=== PATIENT | female | born 1960 | race Caucasian/White ===

== ENCOUNTER → 2018-03-11 13:54 | Outpatient (CLI) | payer OTHER, SELFPAY ==
--- NOTE | 2018-03-11 14:01 | NVE_ITS ---
Venous Exam Indications: 729.5 Pain in limb. 729.81 Swelling of limb. IMPRESSIONS 1. There is no evidence of significant Reflux. 2. No evidence of deep or superficial vein thrombosis involving the right lower extremity Right lower extremity venous duplex evaluation. Doppler flow study including spectral analysis, color and pereyra scale imaging. Location: Vascular laboratory. Patient status: Outpatient. Tables: Venous flow and imaging: + +-------+ + Location Overall Flow properties + +-------+ + Right common femoral Patent Normal phasicity; spontaneous; normal augmentation; compressible + +-------+ + Right saphenofemoral junction Patent Compressible + +-------+ + Right profunda femoral Patent Compressible + +-------+ + Right femoral Patent Normal phasicity; spontaneous; normal augmentation; compressible + +-------+ + Right greater saphenous Patent Normal phasicity; spontaneous; normal augmentation; compressible + +-------+ + Right popliteal Patent Normal phasicity; spontaneous; normal augmentation; compressible + +-------+ + Right posterior tibial Patent Compressible + +-------+ + Right peroneal Patent Compressible + +-------+ + Right gastrocnemius Patent Compressible + +-------+ + Right soleal Patent Compressible + +-------+ + (Report amended ) Electronically signed by: Jigar Scott [id number]
== END ==
PROVIDERS: PCP Family Medicine; Visit Provider Family Medicine
DX: M79.604 Pain in right leg (principal)
CPT/HCPCS: 93971

== ENCOUNTER 2020-08-17 14:55 | Emergency (ER) | payer OTHER, SELFPAY ==
[2020-08-17 14:56] VITALS: BP 138/82; PULSE 81; PULSE 82; RESP 17; RESP 19; TEMP 36.7; O2SAT 98; O2SAT 99; BMI 28.8
--- NOTE | 2020-08-17 15:04 | ECG_ITS ---
APPROVED REPORT Exam: Resting ECG HR:68 bpm ECG Measurements Heart Rate 68 AXES OR 176 P 50 QRSd 68 QRS 28 QT 390 T 36 QTc 414 Conclusion Normal sinus rhythm Possible Left atrial enlargement Borderline ECG Electronically signed by : Jayy Miller, 08/18/2020 08:52:57
--- NOTE | 2020-08-17 15:06 | HMH.EDGENADL ---
ED Disposition Clinical Impression: Epigastric pain Disposition: Home, Self-Care Condition on Discharge: Good Referrals: Wei Guerrero MD [Primary Care Provider] - 3 days Time of Disposition: 16:02 - Critical Care Critical Care Time: No Attestation: On , the high probability of a clinically significant, sudden or life threatening deterioration of the following system(s) required my full and direct attention, intervention and personal management. The time I documented below is in addition to time spent performing reported procedures but includes the following listed in this critical care notation. Medical Decision Making - Medical Records Medical records reviewed: Yes: I reviewed the patient's medical records. - Andrew Inquiry Pt receiving controlled substance: No Vital Signs: 08/17/20 14:56 Temperature 98.1 F Temperature Source Oral Pulse Rate [Left Radial] 81 Respiratory Rate 19 Blood Pressure [Right Arm] 138/82 Blood Pressure Mean [Right Arm] 100 Blood Pressure Source [Right Arm] Automatic Cuff Blood Pressure Position [Right Arm] Sitting 02 Sat by Pulse Oximetry 99 Oxygen Delivery Method Room Air - Lab Data Lab Results 08/17/20 15:10: WBC 6.2, RBC 4.22, Hgb 12.4, Hct 39.4, MCV 93.4, MCH 29.4, MCHC 31.5 L, RDW 12.9, Plt Count 297, MPV 7.3 L, Neut % (Auto) 68.2, Lymph % (Auto) 19.5, Elliott % (Auto) 9.9 H, Eos % (Auto) 1.9, Baso % (Auto) 0.5, Neut # (Auto) 4.2, Lymph # (Auto) 1.2, Elliott # (Auto) 0.6, Eos # (Auto) 0.1, Baso # (Auto) 0.0 08/17/20 15:10: Sodium 141, Potassium 4.1, Chloride 105, Carbon Dioxide 31 H, Anion Gap 9.1, BUN 20 H, Creatinine 1.10 H, Estimated Creat Clear 68, Estimated GFR 51 L, Est GFR ( Amer) 62, Glucose 108 H, Calcium 9.4, Total Bilirubin 0.3, AST 39 H, ALT 26, Alkaline Phosphatase 63, Troponin I < 0.01, Total Protein 7.3, Albumin 4.0, Globulin 3.3 H, Albumin/Globulin Ratio 1.2, Lipase 94 Result diagrams: 08/17/20 15:10 08/17/20 15:10 Orders (Tests/Meds): ORDERS Category Date Time Status Troponin I Q3H Lab 08/17/20 18:15 Ordered Troponin I Q3H Lab 08/17/20 21:15 Ordered - ECG Data Tracing #1 Normal sinus rhythm, 60 bpm, no ST elevation or depression, normal intervals, no ectopy. ECG initial impression date: 08/17/20 ECG initial impression time: 15:08 - JUANITO Score for Non-Stemi Age of Patient: 50-59 years old Heart Rate: 70-89 bpm Systolic Blood Pressure: 120-139 mmhg Serum Creatinine: 0.80-1.19 mg/dl CHF Killip Class: I-No CHF Other Risk Factors: None Non-Stemi Risk Score: 91 Medical Decision Narrative: 59yo F evaluated for epigastric pain. Differential diagnosis includes but is not limited to: Peptic ulcer disease, GERD, ACS/MD, pneumonia, PE, irritable bowel disease, constipation, referred pain from chronic back injury. Patient is in no acute distress on initial evaluation. EKG is unremarkable as above. Chest x-ray, labs are pending at this time. Patient labs are unremarkable. EKG is unremarkable. Chest x-ray unremarkable. Patient remains in no acute distress at this time. Believe her symptoms are more likely related to her chronic back pain/injury as her epigastric/chest pain is positional per HPI. Encourage patient to follow-up PCP for further evaluation and management as an outpatient. General Adult HPI - General Stated complaint: upper epigastric pain Time Seen by Provider: 08/17/20 15:06 Mode of Arrival: Family Vehicle Source of Information: Patient Limitations: No Limitations Description of Symptoms (Recalled from ER Triage Doc. by RN): c/o epigastric pain that radiates into back since Saturday. - History of Present Illness HPI narrative: 59yo F without significant past medical history presents the emergency department secondary to epigastric pain ongoing since Saturday. 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 She reports symptoms are relieved by lying back or reclining.
--- NOTE | 2020-08-17 15:07 | XR_ITS ---
PROCEDURE: XR CHEST PORTABLE CLINICAL HISTORY: epigastric pain Chest pain COMPARISON: CR CXR1 CHEST-PORTABLE from 10/13/2015 FINDINGS: Borderline cardiomegaly without failure. Old granulomatous disease. No lobar consolidation or collapse. No acute bony abnormalities. IMPRESSION: No acute findings. Dictated by: Jigar Scott MD 08/17/2020 15:45 Jigar Scott MD in [place] 08/17/2020 15:45
[2020-08-17 15:24] LABS: Basophils % 0.5 % (0.1-2.0); Eosinophils # 0.1 K/mm3 (0.0-0.4); Eosinophils % 1.9 % (0.1-12.0); Hematocrit 39.4 % (37.0-47.0); Hemoglobin 12.4 g/dL (12.2-16.2); Lymphocytes # 1.2 K/mm3 (0.7-4.5); Lymphocytes % 19.5 % (10-50); Mean Corpuscular HGB Conc 31.5 g/dL (31.8-35.4); Mean Corpuscular Hemoglobin 29.4 pg (27.0-31.2); Mean Corpuscular Volume 93.4 fl (81-99); Mean Platelet Volume 7.3 fl (7.4-10.4); Monocytes # 0.6 K/mm3 (0.1-1.0); Monocytes % 9.9 % (1.7-9.3); Neutrophils # 4.2 K/mm3 (1.8-7.8); Neutrophils % 68.2 % (37.0-80.0); Platelet Count 297 K/mm3 (142-424); Red Blood Count 4.22 M/mm3 (4.20-5.40); Red Cell Distribution Width 12.9 % (11.5-17.5); White Blood Count 6.2 K/mm3 (4.8-10.8)
[2020-08-17 15:26] VITALS: BP 116/76; PULSE 76; RESP 16; O2SAT 98
[2020-08-17 15:30] VITALS: PULSE 82; RESP 18; O2SAT 100
[2020-08-17 15:30] LABS: Chloride 105 mmol/L (98-107); Sodium 141 mmol/L (136-145)
[2020-08-17 15:31] LABS: Potassium 4.1 mmoL/L (3.5-5.1)
[2020-08-17 15:33] LABS: Alanine Aminotransferase 26 U/L (12-78); Alkaline Phosphatase 63 U/L (38-126); Anion Gap 9.1 mEq/L (5-15); Aspartate Amino Transferase 39 U/L (14-36); Bilirubin,Total 0.3 mg/dl (0.2-1.3); Blood Urea Nitrogen 20 mg/dl (7-17); Carbon Dioxide 31 mmol/L (22.0-30.0); Creatinine Clearance Estimated 68 mL/min (50-200); Estimated Glomerular Filt Rate 51 ml/min (>60); GFR (African American) 62 ML/MIN (>60); Lipase 94 U/L (23-300)
[2020-08-17 15:34] LABS: Albumin/Globulin Ratio 1.2 (1.1-1.8); Calcium 9.4 mg/dl (8.4-10.2); Globulin 3.3 g/dL (1.3-3.2); Glucose 108 mg/dl (74-100); Total Protein,Serum 7.3 g/dl (6.3-8.2)
[2020-08-17 15:50] LABS: Troponin I < 0.01 ng/ml (0.00-0.034)
[2020-08-17 16:00] VITALS: PULSE 77; RESP 17; O2SAT 99
[2020-08-17 16:12] VITALS: BP 114/79; PULSE 81; RESP 16; TEMP 36.6; O2SAT 99
== END 2020-08-17 16:13 | disposition home or self-care (01) ==
PROVIDERS: Emergency Provider Family Medicine; PCP Family Medicine
DX: R10.13 Epigastric pain (principal); I10 Essential (primary) hypertension; Z88.0 Allergy status to penicillin; Z79.899 Other long term (current) drug therapy
CPT/HCPCS: 71045; 80053; 83690; 84484; 85025; 93005; 99283

== ENCOUNTER → 2020-10-13 08:55 | Outpatient (CLI) | payer OTHER, SELFPAY ==
--- NOTE | 2020-10-13 09:06 | CT_ITS ---
PROCEDURE: CT ABDOMEN PELVIS WO/W CON CLINICAL INDICATION: HYDRONEPHROSIS Midepigastric pain Patient states hydronephrosis seen on EGD COMPARISON: US KID US [id number] from 09/06/2015 TECHNIQUE: IV Contrast: 75ML Isovue 370 Oral Contrast None Axial images obtained with sagittal and coronal reformats. All CT scans at the facility use one or more dose reduction, viz: automated exposure control, ma/kV adjustment per patient size (including targeted exams where dose is matched to indication, i.e. head), or iterative reconstruction technique. FINDINGS: LOWER THORAX: There are multiple calcified granulomas in the lung bases as well as a few noncalcified nodules measuring 4 mm in the right lower lobe. There is a small pericardial effusion measuring up to 7 mm in thickness. ABDOMEN & PELVIS: There are few calcified granulomas in the liver and spleen. No focal liver lesion is apparent. The spleen, pancreas, and adrenal glands have an unremarkable appearance. No radiopaque gallstones apparent. There is a mildly prominent right extrarenal pelvis. There are multiple pelvic phleboliths some of which are adjacent to the distal ureter. No definite ureteral calculus however is felt to be present. No urinary bladder calculi evident. There is a mild amount of retained colonic feces. No evidence of appendicitis. No intestinal obstruction or free air. There are scattered colonic diverticula but no evidence of diverticulitis. There may be a small right ovarian cyst at 1.8 cm. This could also be due to an unopacified bowel loop. IMPRESSION: 1. Mildly prominent extrarenal pelvis on the right. No renal or ureteral calculi. 2. Small pericardial effusion. 3. Other nonacute findings as described above. Dictated by: Jigar Scott MD 10/14/2020 12:02 Jigar Scott MD in [place] 10/14/2020 12:02
[2020-10-13 09:24] LABS: Blood Urea Nitrogen 18 mg/dl (7-17); Estimated Glomerular Filt Rate 57 ml/min (>60); GFR (African American) 69 ML/MIN (>60)
== END ==
PROVIDERS: PCP Family Medicine; Visit Provider Urology
DX: N13.30 Unspecified hydronephrosis (principal)
CPT/HCPCS: 36415; 74178; 82565; 84520; Q9967

== ENCOUNTER → 2020-12-09 10:59 | Outpatient (CLI) | payer OTHER, SELFPAY ==
[2020-12-09 12:08] LABS: Chloride 109 mmol/L (98-107); Sodium 141 mmol/L (136-145)
[2020-12-09 12:09] LABS: Potassium 4.7 mmoL/L (3.5-5.1)
[2020-12-09 12:11] LABS: Alanine Aminotransferase 16 U/L (12-78); Albumin Level 4.1 g/dl (3.5-5.0); Alkaline Phosphatase 56 U/L (38-126); Anion Gap 13.7 mEq/L (5-15); Aspartate Amino Transferase 32 U/L (14-36); Bilirubin,Direct 0.2 mg/dl (0.0-0.4); Bilirubin,Indirect 0.2 mg/dL (0.0-0.9); Bilirubin,Total 0.4 mg/dl (0.2-1.3); Bilirubin,Unconjugated 0.2 mg/dL (0.0-1.1); Blood Urea Nitrogen 18 mg/dl (7-17); Carbon Dioxide 23 mmol/L (22.0-30.0); Estimated Glomerular Filt Rate 64 ml/min (>60); GFR (African American) 78 ML/MIN (>60); Glucose 86 mg/dl (74-100); Total Protein,Serum 6.8 g/dl (6.3-8.2); Triglycerides 156 mg/dl (30-150); VLDL Cholesterol 31 mg/dL (0-40)
[2020-12-09 14:35] LABS: Chol/HDL Ratio 3.6 (1-3.5); Cholesterol 214 mg/dl (140-200); HDL Cholesterol 60 mg/dl (40-60)
== END ==
PROVIDERS: Visit Provider Internal Medicine Interventional Cardiology
DX: I10 Essential (primary) hypertension (principal); E78.00 Pure hypercholesterolemia, unspecified
CPT/HCPCS: 36415; 80048; 80061; 80076

== ENCOUNTER 2021-01-11 16:00 | Outpatient (RCR) | payer OTHER, SELFPAY | END 2021-01-11 16:05 | disposition home or self-care (01) | LOC: PT 16:00 | PROVIDERS: PCP Family Medicine; Visit Provider Orthopaedic Surgery Adult Reconstructive Orthopaedic Surgery | DX: M25.571 Pain in right ankle and joints of right foot (principal) | CPT/HCPCS: 97033; 97035; 97110; 97163 ==

== ENCOUNTER → 2021-03-02 11:15 | Outpatient (CLI) | payer OTHER, SELFPAY | PROVIDERS: Visit Provider Nurse Practitioner Family | DX: Z20.822 Contact with and (suspected) exposure to COVID-19 (principal); U07.1 COVID-19 | CPT/HCPCS: U0003 ==

== ENCOUNTER → 2021-07-21 10:44 | Outpatient (CLI) | payer OTHER, SELFPAY ==
[2021-07-21 11:48] LABS: Alanine Aminotransferase 20 U/L (12-78); Albumin Level 4.1 g/dl (3.5-5.0); Albumin/Globulin Ratio 1.6 (1.1-1.8); Alkaline Phosphatase 60 U/L (38-126); Anion Gap 11.2 mEq/L (5-15); Aspartate Amino Transferase 45 U/L (14-36); Bilirubin,Total 0.4 mg/dl (0.2-1.3); Blood Urea Nitrogen 17 mg/dl (7-17); Calcium 9.3 mg/dl (8.4-10.2); Carbon Dioxide 29 mmol/L (22.0-30.0); Chloride 105 mmol/L (98-107); Chol/HDL Ratio 3.5 (1-3.5); Cholesterol 217 mg/dl (140-200); Estimated Glomerular Filt Rate 64 ml/min (>60); GFR (African American) 78 ML/MIN (>60); Globulin 2.6 g/dL (1.3-3.2); Glucose 92 mg/dl (74-100); HDL Cholesterol 62 mg/dl (40-60); Potassium 4.2 mmoL/L (3.5-5.1); Sodium 141 mmol/L (136-145); Total Protein,Serum 6.7 g/dl (6.3-8.2); Triglycerides 155 mg/dl (30-150); VLDL Cholesterol 31 mg/dL (0-40)
[2021-07-21 11:59] LABS: Direct LDL Cholesterol 118.95 mg/dL (100-129)
[2021-07-21 12:20] LABS: Thyroid Stimulating Hormone 1.14 uIU/mL (0.465-4.68)
== END ==
PROVIDERS: Visit Provider Physician Assistant
DX: I10 Essential (primary) hypertension (principal); E78.5 Hyperlipidemia, unspecified
CPT/HCPCS: 36415; 80053; 80061; 84443

== ENCOUNTER 2022-01-08 15:58 | Emergency (ER) | payer OTHER, SELFPAY ==
[2022-01-08 16:45] VITALS: BP 146/78; PULSE 67; RESP 17; TEMP 36.7; O2SAT 99; BMI 27.8
[2022-01-08 16:53] LABS: Apearance,Urine Clear (Clear); Bilirubin,Urine Negative (Negative); Blood, Urine 1+ (Negative); Color,Urine Yellow (Yellow); Glucose,Urine (UA) Negative (Negative); Ketones,Urine Negative (Negative); PH,Urine 5.5 (5.0-8.5); Protein,Urine Negative (Negative); UTC Leukocyte Esterase,Urine 1+ (Negative); UTC Nitrate,Urine Negative (Negative); Urobilinogen,Urine 0.2 EU/dl (0.2)
[2022-01-08 17:05] VITALS: BP 146/78; PULSE 67; RESP 17; TEMP 36.7; O2SAT 99
--- NOTE | 2022-01-08 17:16 | HMH.EDUTC ---
[facility] Disposition Clinical Impression: UTI (urinary tract infection) Qualifiers: Urinary tract infection type: site unspecified Hematuria presence: with hematuria Qualified Code(s): N39.0 - Urinary tract infection, site not specified Disposition: Home, Self-Care Condition on Discharge: Good Instructions: Urinary Tract Infection, DI for Urinary Tract Infection (UTI), Cephalexin Additional Instructions: *Increase fluids. Water not Soda or Tea *Start antibiotic immediately and be sure to take as ordered for the FULL length of time although you should start to see improvement over the next 48 hours *Pyridium as needed Remember this medication will turn your urine [place]. This is normal but it will stain what ever it gets on *You should not use Pyridium for more than 48 hours. If so , follow up with your primary physician to review urine culture and ensure that antibiotic is adequate for infection *Be SURE to follow up anytime for new or worsening symptoms with your family doctor. AND in 48 hours for urine culture results with your family doctor, if you do not have a doctor then you may call back to the [facility] for urine culture results and further treatment. We do recommend that you choose and establish care with a Primary Care Physician. AND follow up with them in 10-14 days to repeat UA to ensure infection is resolved and blood no longer present *Be sure to let your PCP know that we sent urine cultures from the [facility] so they can follow up to ensure that you area the on the correct antibiotic Call your doctor office and make appointment for 48 hours (2 days from today) to follow up and get the results of your urine culture and further treatment Prescriptions: cephALEXin [cephALEXin 500mg capsule*] 500 mg PO BID 7 Days #14 cap Transmission Status: Pending to [id number] Phenazopyridine HCl [Pyridium 200mg Tablet] 200 pow PO TID #6 tab Transmission Status: Pending to [id number] Referrals: Wei Guerrero MD [Primary Care Provider] - As needed Time of Disposition: 17:26 Medical Decision Making - Andrew Inquiry Pt receiving controlled substance: No Andrew was queried for this patient: No Vital Signs: 01/08/22 16:45 01/08/22 17:05 Temperature 98.0 F 98.0 F Temperature Source Oral Pulse Rate 67 Pulse Rate [Right Brachial] 67 Respiratory Rate 17 17 Blood Pressure 146/78 H Blood Pressure [Right Arm] 146/78 H Blood Pressure Mean [Right Arm] 100 Blood Pressure Source [Right Arm] Automatic Cuff Blood Pressure Position [Right Arm] Sitting 02 Sat by Pulse Oximetry 99 Oxygen Delivery Method Room Air - Lab Data Lab results reviewed: Yes: I reviewed the patient's lab results. Lab Results 01/08/22 16:45: Urine Color Yellow, Urine Appearance Clear, Urine pH 5.5, Ur Specific [place] 1.010, Urine Protein Negative, Urine Glucose (UA) Negative, Urine Ketones Negative, Urine Blood 1+, Urine Nitrate Negative, Urine Bilirubin Negative, Urine Urobilinogen 0.2, Ur Leukocyte Esterase 1+ A Orders (Tests/Meds): ORDERS Category Date Time Status Urine Culture Stat Micro 01/08/22 16:40 Received Medical Decision Narrative: Patient states that she has taken cephalexin in the past without complications or reactions [facility] HPI - General Stated complaint: possible UTI Time Seen by Provider: 01/08/22 17:16 Mode of Arrival: Ambulatory Source of Information: Patient Limitations: No Limitations Description of Symptoms (Recalled from Triage Doc. by RN): PATIENT C/O PRESSURE TO BLADDER AND URINARY FREQUENCY X 1 WEEK HEENT Symptoms (Recalled from RN notes): No Resp Symptoms (Recalled from RN notes): No Skin Symptoms (Recalled from RN notes): No MS Symptoms (Recalled from RN notes): No Functional Status (Recalled from RN notes): WNL - History of Present Illness Provider Complaint: Patient states that she feels like she may have a UTI States that she has been having pressure and burning with urination for abou
== END 2022-01-08 17:42 | disposition home or self-care (01) ==
PROVIDERS: Emergency Provider Nurse Practitioner; PCP Family Medicine
DX: N39.0 Urinary tract infection, site not specified (principal); B96.1 Klebsiella pneumoniae [K. pneumoniae] as the cause of diseases classified elsewhere
CPT/HCPCS: 81003; 87086; 87088; 87186; 99212; G0463

== ENCOUNTER → 2022-05-04 10:36 | Outpatient (CLI) | payer OTHER, SELFPAY ==
[2022-05-04 12:01] LABS: Alanine Aminotransferase 18 U/L (12-78); Albumin Level 4.1 g/dl (3.5-5.0); Alkaline Phosphatase 72 U/L (38-126); Aspartate Amino Transferase 34 U/L (14-36); Bilirubin,Indirect 0.3 mg/dL (0.0-0.9); Bilirubin,Total 0.3 mg/dl (0.2-1.3); Bilirubin,Unconjugated 0.4 mg/dL (0.0-1.1); Chol/HDL Ratio 4.2 (1-3.5); Cholesterol 237 mg/dl (140-200); HDL Cholesterol 56 mg/dl (40-60); Total Protein,Serum 6.5 g/dl (6.3-8.2); Triglycerides 201 mg/dl (30-150); VLDL Cholesterol 40 mg/dL (0-40)
== END ==
PROVIDERS: PCP Family Medicine; Visit Provider Internal Medicine Interventional Cardiology
DX: E78.00 Pure hypercholesterolemia, unspecified (principal)
CPT/HCPCS: 36415; 80061; 80076

== ENCOUNTER 2024-04-14 01:31 | Emergency (ER) | payer OTHER, SELFPAY ==
[2024-04-14 01:33] VITALS: BP 190/113; PULSE 62; RESP 16; TEMP 36.8; O2SAT 98; BMI 29.0
--- NOTE | 2024-04-14 01:44 | ED_ITS ---
Discharge Plan Disposition Patient Disposition: Home, Self-Care Prescriptions Prescriptions: No Action estradiol [Estrace] 0.01 % (0.1 mg/gram) cream 1 appful vaginal DAILY 30 Days Qty: 42.5 6RF valsartan-hydrochlorothiazide 1 EACH tablet 1 each PO DAILY Referrals Follow up/Referrals: Wei Guerrero MD [Primary Care Provider] - See instructions Activity Restrictions/Add. Instructions Additional Instructions/Restrictions: Given how long the tick has been on, you need only a single dose of doxycycline as prophylaxis. Please follow-up with your primary care provider. Please return to the emergency department if you develop any new or worsening symptoms or become concerned for your health. Clinical Impressions Clinical Impression: Tick bite of abdomen Qualifiers: Encounter type: initial encounter Qualified Code(s): S30.861A - Insect bite (nonvenomous) of abdominal wall, initial encounter Instructions Patient Instructions: DI for Skin Abscess Print Language Print Language: Romansh Discharge ED Provider: Rodolfo Rangel General Adult HPI General Chief complaint: Skin/Abscess/Foreign Body Stated complaint: lesion abd Time Seen by Provider: 04/14/24 01:38 History of Present Illness HPI narrative: 63-year-old female without significant past medical history presents for concern for insect bite/adherent tick. She reports that she is outside regularly but specifically went through the [place] yesterday. She noticed a black dot on her abdomen that when she tried to pull it off she feels like it went further in. She presents for further assessment. Related Data Home Medications ?Medication ?Instructions ?Recorded ?Confirmed valsartan 160 1 each PO DAILY Hypertension 01/08/22 03/24/24 mg-hydrochlorothiazide 12.5 mg tablet Previous Rx's ?Medication ?Instructions ?Recorded estradiol 0.01% (0.1 mg/gram) 1 appful vaginal DAILY 30 days 05/29/22 vaginal cream (Estrace) #42.5 grams Allergies Allergy/AdvReac Type Severity Reaction Status Date / Time ciprofloxacin Allergy Intermediate Hives Verified 03/24/24 13:01 Penicillins [PENICILLINS] Allergy Unknown Verified 03/24/24 13:01 [facility] Disclaimer: The information contained in this section may have been updated after the patient was seen, as this information can be updated by other users. Medical History Vaginal dryness Surgical History History of tonsillectomy and adenoidectomy Hx of laparoscopy Social History Smoking Status: Never smoker alcohol intake: never substance use type: denies use current occupational status: other Travel in the last 8 weeks: None household members: spouse housing: house Other Medical History Have you received the Flu Vaccine for this season: No Have you received the Pneumonia Vaccine: No ROS Obtained: Yes All systems reviewed & no additional complaints except as documented Physical Exam General General appearance: alert and in no apparent distress Head Head exam: atraumatic and normocephalic Eye Eye exam: Present normal appearance, PERRL and EOMI ENT ENT exam: Present normal oropharynx and normal external ear exam Neck Neck exam: Present normal inspection and full ROM Chest Chest inspection: Present normal inspection and symmetric chest wall rise; Absent tenderness Respiratory Respiratory exam: Present normal lung sounds bilaterally; Absent respiratory distress Cardiovascular Cardiovascular exam: Present regular rate and normal rhythm Abdominal Exam Abdominal exam: Present soft; Absent distention, tenderness or guarding Comment: Small black spot with surrounding circular erythema Extremities Exam Extremities exam: Present normal inspection; Absent edema or joint swelling Back Exam Back exam: Present normal inspection; Absent tenderness Neurological Exam Neurological exam: Present alert and oriented X3; Absent motor sensory deficit Psychiatric Psychiatric exam: Present normal affect and normal mood Skin Skin exam: Present warm, dry and normal color Lymphatic Lymphatic Findings: no adenopathy Medical Decision Making Medical Records Medical records reviewed: Yes I reviewed the patient's medical records. Screening: Per USPSTF and CDC recommendations, given the prevalence of disease in our region, it is our hospital?s policy to screen for HIV and viral Hepatitis for all patients aged 18 and over and those with ongoing risk factors. Andrew Inquiry Pt receiving controlled substance: No Andrew was queried for this patient: No Vital Signs: 04/14/24 01:33 04/14/24 02:23 Temperature 98.2 F 97.9 F Temperature Source Oral Oral Pulse Rate 67 Pulse Rate [Right Radial] 62 Respiratory Rate 16 18 Blood Pressure 177/101 H Blood Pressure [Right Arm] 190/113 H Blood Pressure Mean [Right Arm] 138 Blood Pressure Source [Right Arm] Automatic Cuff Blood Pressure Position [Right Arm] Supine 02 Sat by Pulse Oximetry 98 Oxygen Delivery Method Room Air Room Air Lab Data Lab results reviewed: Yes I reviewed the patient's lab results. Orders (Tests/Meds): ED MEDICATIONS Discontinued Medications Generic Name Dose Route Start Last Admin Trade Name Radha PRN Reason Stop Dose Admin Doxycycline Hyclate 200 mg 04/14/24 02:20 04/14/24 02:23 Doxycycline Hycl 100 Mg Tablet PO 04/14/24 02:21 200 mg ONCE ONE Administration Medical Decision Narrative: 63-year-old female without significant past medical history presents for concern for tick bite.. History was obtained via interactive discussion with patient. On arrival, patient is [afebrile, hemodynamically stable, satting appropriately, alert, oriented x4, GCS 15], moving all extremities spontaneously. Full physical exam performed and significant for small black spot adherent to the abdomen with a small amount of erythema surrounding. When I removed it, it appeared consistent with the biting parts of a tick. The rest of the tick has already been removed. Differential includes but is not limited to insect bite, Lyme exposure, cellulitis. Given the short duration of tick adherence, patient does not require full doxycycline course. We will treat with 2 mg of doxycycline p.o. for Lyme prophylaxis. Patient discharged in stable condition with return precautions. Procedures Risk/Benefits of Procedure(s) Were Explained: Yes Critical Care Critical Care Time Critical Care Time: No
[2024-04-14 02:23] VITALS: BP 177/101; PULSE 67; RESP 18; TEMP 36.6; O2SAT 98
[2024-04-14] MEDS: DOXYCYCLINE HYCL 100 MG TABLET 200 MG PO (02:23)
== END 2024-04-14 02:25 | disposition home or self-care (01) ==
PROVIDERS: Emergency Provider Emergency Medicine; PCP Family Medicine
DX: S30.861A Insect bite (nonvenomous) of abdominal wall, initial encounter (principal); R19.00 Intra-abdominal and pelvic swelling, mass and lump, unspecified site; W57.XXXA Bitten or stung by nonvenomous insect and other nonvenomous arthropods, initial encounter; Y93.9 Activity, unspecified; Y92.9 Unspecified place or not applicable
CPT/HCPCS: 10120; 99282

== ENCOUNTER 2025-04-21 08:52 | Outpatient (CLI) | payer OTHER, SELFPAY ==
--- OUTSIDE RECORDS SUMMARY | 2023-11-21 06:45 | XMS_ITS ---
Author Organization [facility] Address [address] [facility] [address] [facility] [address] [place] [id number] Care Team Providers Care Electrician Radio Name Role Phone Wei Guerrero Primary Care Provider [phone] Nola Beltran Unavailable [phone] REASON FOR VISIT shingles shot Medications Medication [...] Provider Diagnosis [facility] [address] [facility] [address] [place] [id number] 11/21/2023 Nola Redman Encounter for vaccination Z23 Assessments Encounter Date Diagnosis (ICD Code) Assessment Notes Treatment Notes Treatment Clinical Notes Section Notes 11/21/2023 Encounter for vaccination (ICD-10 - Z23) Plan Of Treatment Next Appt Details Follow Up: 2-4 months, Reaso n: Progress Notes * Birgit MORENO:[birth year] (64 yo F)Acc No.[id number]:11/21/2023 Patient: Alta SANTOS Provider: Nola Redman M.D. :1960 A ge:63 Y S ex:Female Date:11/21/2023 Address:[facility] [place] [place] [facility], [id number] Pcp:Wei Guerrero Subjective: * Chief Complaints: * [...] Electronic signature of Nola Redman MD on 04/21/2025 at 09:23 AM EDT Sign off status: Pending * Provider: Nola Redman M.D. Date: 0 11/21/2023 Generated for Nery scott/Radha/[place] on: 09:23 AM EDT
--- OUTSIDE RECORDS SUMMARY | 2023-12-12 10:30 | XMS_ITS ---
Author Organization [facility] Address [address] [facility] [address] [place] [id number] Care Team Providers Care Exchange Clerk Name Role Phone Yolanda Wei Primary Care Provider [phone] Nola Beltran [phone] Allergies Allergen (clinical drug ingredient) Drug/Non Drug [...] Encounter Location Date Provider Diagnosis [facility] [address] [facility] [address] [place] [phone] 12/12/2023 Nola Redman Essential hypertensi on I10 [...] * Alta MORENODOB:[birth year] (64 yo F)Acc No.[id number]:12/12/2023 Progress Notes Patient: Alta SANTOS Provider: Nola Redman M.D. :1960 A ge:63 Y S ex:Female Date:12/12/2023 Address:[facility] [place] [facility], [id number] Pcp:Wei Guerrero Subjective: * Chief Complaints: * [...] Hiatal hernia, Irritable bowel syndrome, Follows with [facility] for mammogram. * Surgical History: t onsillectomy [...] * Images: Billing Information: * Visit Code: 20492 Office Visit, Est Pt., Level 3. * Procedure Codes: * Electronic signature of Nola Redman MD on 04/21/2025 at 09:24 AM EDT Sign off status: Pending * Provider: Nola Redman M.D. Date: 12/12/2023 Generated for Nery scott/Faxing/eTransmitting on: 1 09:24 AM EDT History and Physical Notes * HPI (History [...]
--- OUTSIDE RECORDS SUMMARY | 2024-04-14 10:45 | XMS_ITS ---
Author Organization [facility] Address [facility] [address] [place] [id number] Care Team Providers Care Technical Sales Engineer Name Role Phone Yolanda Wei Primary Care Provider [phone] Nola Beltran [phone] Allergies Allergen (clinical drug ingredient) Drug/Non Drug Allergy documented on EMR Reaction Allergy Type Onset Date Status ciprofloxacin Cipro rash Drug Allergy Act levi Penicillin Unknown Drug Allergy Active REASON FOR VISIT [facility] ER f/u; Tick bite Medications Medication [...] Provider Diagnosis [facility] [address] [place] [id number] 04/14/2024 Nola Redman Tick bite W57.XXXA a [...] * Alta MORENODOB:[birth year] (64 yo F)Acc No.[id number]:04/14/2024 Progress Notes Patient: Alta SANTOS Provider: Nola Redman M.D. :1960 A ge:63 Y S ex:Female Date:04/14/2024 Address:[facility], [id number] Pcp:Wei Guerrero Subjective: * Chief Complaints: * 1 . [facility] ER f/u; Tick bite. * HPI: [...] Hiatal hernia, Irritable bowel syndrome, Follows with [facility] for mammogram. * Surgical History: t onsillectomy [...] * Images: Billing Information: * Visit Code: 32897 Office Visit, Est Pt., Level 3. * Procedure Codes: * Electronic signature of Nola Redman MD on 04/21/2025 at 09:23 AM EDT Sign off status: Pending * Provider: Nola Redman M.D. Date: Generated for Nery scott/Radha/Lois on: 09:23 AM EDT History and Physical Notes * Examination Category Sub-Category Detail Notes Category Not es Dermatology Trunk: On the left mid abdomen, there is a scabbed lesion with a 3 cm area of surrounding erythema. No induration. No drainage.
--- OUTSIDE RECORDS SUMMARY | 2025-04-06 05:45 | XMS_ITS ---
Author Organization [facility] Address [address] [facility] [address] [place] [address] [place] [id number] Care Team Providers Care Data Warehousing Architect Name Role Phone Wei Guerrero Primary Care Provider [phone] Blanca Gutierrez Unavailable [phone] Allergies Allergen (clinical drug ingredient) Drug/Non Drug [...] Interpretation:Normal Performing Lab: Notes/Report: Test performed by [employer] | [employer], [employer] [address] [place] [address] , [address], [place] [address] Bg Su MD, Rubber Cutter CLIA: [id number] Sodium 145 135-145 mmol/L Potassium 4.6 3.5-5.3 [...] 126 Performing Lab: Notes/Report: Test performed by [employer] | [employer], [facility] [address] [place] [address] , [place] [address] Bg Su MD, Rubber Cutter CLIA: [id number] Lipid Panel Footnote See Below *Based on optimal reference values. Please refer to the DOS for additional information regarding diagnostic lipid reference ranges, patient management based on the recently updated lipid guidelines ([place] College [employer] Cardiology/[place] Heart Association Task Force on Clinical Practice [...] Interpretation:45.3 Performing Lab: Notes/Report: Test performed by [employer] [address] [place] [address] , [facility] C, [place] [address] Bg Su MD, Rubber Cutter CLIA: [id number] Vitamin D, 1, 25 Dihydroxy 45.3 19.9-79.3 [...] Status Risk Notes Problem Gastroesophageal reflux disease (430697216) GERD (gastroeso phageal reflux disease) (K21.9) Active confirmed Vital Signs Blood pressure systolic 132 mm Hg 04/06/20 25 Blood pressure diastolic 92 mm Hg 025 Heart Rate 64 /min 04/06/2025 Height 64 in 04/06/2025 Weight 166.6 lbs 04/06/2025 BMI 28.59 kg/m2 04/06/2025 Encounters Encounter Location Date Provider Diagnosis [facility] [address] [place] [id number] 04/06/2025 Blanca Gutierrez Essential hypertensi on I10 [...] murmur (ICD-10 - R01.1) pt has seen [place] in the past sith ECHO for [...] sc heduled Heart murmur pt has seen [facility] cardiology in the past sith ECHO for the heart murmur; she was told that it was OK; Other declines Fu vaccine; colonoscopy not due; has mammogram scheduled for this year Next Appt Details Follow Up: 1 Year,and Nola graham: Progress Notes * Alta MORENODOB:[birth year] (64 yo F)Acc No.[id number]:04/06/2025 Progress Notes Patient: Champ Alta MOLINA Provider: ALBERTA Frank :1960 A ge:64 Y S ex:Female Date:04/06/2025 Address:[place], [id number] Pcp:Wei Guerrero Subjective: * Chief Complaints: * [...] a refill for 90 days sent to [facility]. Denies : Chest Pain. D enies : [...] Hiatal hernia, Irritable bowel syndrome, Follows with [facility] for mammogram. * Surgical History: t onsillectomy [...] 328 100 - 400 * Kathleen Lundy 04/06/2025 1 1:22:20 AM EDT >Blanca Gutierrez 04/12/2025 02:35:42 PM EDT >I spoke with pt and reported results 6.?Heart murmur? Notes: pt has seen [place] in the past [facility] ECHO for the heart murmur; she was told that it was OK; ??7.?Others? Notes: declines Fu vaccine; colonoscopy not due; has mammogram scheduled for this year?? * Procedure Codes: 8 5025 CBC WITH AUTO DIFF, 1036F TOBACCO NON-USER * Follow Up: 1 Year,and prn * Images: Billing Information: * Visit Code: 23316 Office Visit, Est Pt., Level 4. * Procedure Codes: 46639 CBC WITH AUTO DIFF. 1036F TOBACCO NON-USER. * Electronic signature of Saranya Gutierrez APRN on 04/21/2025 at 09:24 AM EDT Sign off status: Pending * Provider: ALBERTA Frank Date: 1 Generated for Nery scott/Radha/Lois on: 09:24 AM EDT History and Physical Notes [...] cavity: mucosa moist and WNL , no erythema"
--- NOTE | 2025-04-21 08:55 | XR_ITS ---
FINAL REPORT CLINICAL HISTORY: SCREENING COMPARISON: None FINDINGS: Using L1-4, the bone mineral density of the spine is 1.057 g/cm2, corresponding to T-score of 0.1, within normal limit. Using the left hip, the bone mineral density of the femoral neck is 0.668 g/cm2, corresponding to a T-score of -1.6, consistent with osteopenia. Using the right hip, the bone mineral density of the femoral neck is 0.662 g/cm2, corresponding to a T-score of -1.7, consistent with osteopenia. FRAX 10 year fracture risk is 0.9% for a hip fracture and 8.7% for a major osteoporotic fracture. NOTE: T-score: Standard deviation compared with peak bone mass of young adult mean. *Following the recommendations of the International Society of Bone densitometry, classification of hip BMD is based on the lower of two T-scores; total hip or femoral neck. IMPRESSION: Normal bone mineral density of the lumbar spine, with diminished bone mineral density in the bilateral hips consistent with osteopenia. Reviewed, Interpreted and Dictated by Juan Monreal MD Transcribed by Kendal Mcgill Authenticated and [facility]
--- OUTSIDE RECORDS SUMMARY | 2025-04-21 09:23 | XMS_ITS | Patient Health Record ---
Author Organization [facility] Address [address] [place] [phone] Care Team Providers Care Story Analyst Name Role Phone Wei Guerrero Primary Care Provider GutierrezRoBlanca Unavailable [phone] Allergies Allergen (clinical drug ingredient) Drug/Non Drug [...] - 38 platlet 328 100 - 400 P-Vitamin D, 1, 25 Dihydroxy Reviewed date:04/12/2025 02:34:18 PM Interpretation:45.3 Performing Lab: Notes/Report: Test performed by [employer], [facility] [address] [place] [address] , [address], [place] [address] Bg Su MD, Production Officer CLIA: [id number] Vitamin D, 1, 25 Dihydroxy 45.3 19.9-79.3 pg/m L P-Lipid Panel Reviewed date:04/12/2025 02:33:51 PM Interpretation:TC 234; LDL 145; HDL 64; TG 126 Performing Lab: Notes/Report: Test performed by [employer], [employer] [address] [place] [address] , [address], [place] [address] Bg Su MD, Production Officer ALANNA: [id number] Lipid Panel Footnote See Below *Based on optimal reference values. Please refer to the DOS for additional information regarding diagnostic lipid reference ranges, patient management based on the recently updated lipid guidelines ([place] College of Cardiology/[place] Heart Association Task Force on Clinical Practice [...] Results: 145 Units: mg/dL % Change: -5% P-Comprehensive Metabolic Pa constanza (CMP) Reviewed date:04/12/2025 02:34:53 PM Interpretation:Normal Performing Lab: Notes/Report: Test performed by [employer], [employer] [facility] , [address], [place] [address] Bg Su MD, Production Officer CLIA: [id number] Sodium 145 135-145 mmol/L Potassium 4.6 3.5-5.3 [...] 0.4 <0.2-1.2 mg/dL A/G Ratio 1.7 1.1-2.5 Reason For Referral No Information Medications Medication SIG (Take, Route, Frequency, Duration) Notes Start Date End Date Status Valsartan-hydroCHLOROthiaz rosa 80-12.5 MG 1 tablet Orally Once a day; Duration: 90 days Active Immunizations Vaccine Route Administration Date Status Comme nts COVID 19 Pfizer Unknown 09/20/2020 Administered COVID 19 Pfizer Unknown 10/18/2020 Administered Fluzone Quad (6months&older) IM Intramuscular 05/23/2020 Administered Shingrix IM Intramuscular 06/04/2023 Administered Shingrix IM Intramuscular 11/21/2023 Administered Tetanus Tdap-Adacel (over 7yrs) Unknown 01/25/2022 Administered Problems Problem Type SNOMED Code ICD Code Onset Dates Problem Status W/U Status Risk Notes Problem Gastroesophageal reflux disease (222193749) GERD (gastroesophage al reflux disease) (K21.9) Active confirmed Problem Vitamin D deficiency (16310605) Vitamin D deficiency (E55.9) Active confirmed Problem Essential hypertension (77256307) Essential hypertension (I10) Active confirmed Problem Arthritis (0364184) Arthritis (M19.90) Active confirmed Problem Dyslipidemia (170204052) Dyslipidemia (E78.5) Active confirmed Vital Signs Heart Rate 64 /min 04/06/2025 Blood pressure diastolic 92 mm Hg 04/06/2025 Height 64 in 04/06/2025 Blood pressure systolic 132 mm Hg 04/06/2025 Weight 166.6 lbs 04/06/2025 BMI 28.59 kg/m2 04/06/2025 Encounters Encounter Location Date Provider Diagnosis [facility] [address] [facility] [address] [place] [id number] 04/06/2025 Blanca Gutierrez Essential hypertensi on I10 [...] murmur (ICD-10 - R01.1) pt has seen [place] [facility] in the past [facility] ECHO for the heart murmur; she was told that it was OK; 04/06/2025 Other declines Fu vaccine; colonoscopy not due; has mammogram scheduled for this year Plan Of Treatment Pending Test Test Name Order Date Bone density 04/06/2025 Insurance Providers Payer Name Payer Address Payer Phone Subscriber Number Group Number Insured Name Patient Relationship to Insured Coverage Start Date Coverage End Date [facility] [address] [place] [phone] [id number] Alta MORENO Self - patient is the insured Medical (General) History Medical History History ICD Code hypertension Arthritis Hiatal hernia irritable bowel syndrome Follows with [facility] for mammogram Surgical History Surgery Date(Month/Year) tonsillectomy 1969 laparoscopy 2004 Outpt. benign tumor/cyst from tongue 198 0's Hospitalization History Reason Date(Month/Year) tonsillectomy 1969
--- OUTSIDE RECORDS SUMMARY | 2025-04-21 09:25 | XMS_ITS | Clinical Summary ---
Author Organization [facility] Address [address] [place] [address] Care Team Providers Care Environmental Health Sanitarian Name Role Phone Wei Guerrero MD Primary Care Provider + [phone] Social History Tobacco Use Types Packs/Day Years Used Date Smoking Tobacco: Never Assessed Comments Unknown Sex and Gender Information Value Date Recorded Sex Assigned at Not on file Legal Sex Female 8:01 PM EDT Gender Identity Not on file Sexual Orientation Not on file Plan of Treatment Upcoming Encounters Date Type Department Care Team (Late st Contact Info) Description 04/26/2025 8:00 AM EST Ovarian Cancer Screening [facility] [address] [facility], [address]rd [place] [address] Health Maintenance Due Date Last Done Comments [facility]-Depression Screening 1960 [facility]-HIV Screening 1962 [facility]-Hepatitis C Screening 1962 [facility]-Infant/Child/Adol SDOH Screenings 1962 [facility]- SDOH Screenings 1980 [facility]-Adult SDOH Screenings 1980 [facility]-Pap Smear 09/25/1983 [facility]-Cervical Cancer Screening 1992 [facility]-HPV/Cotest 1992 CT Colonography 09/25/2007 Colonoscopy 09/25/2007 FIT-DNA 09/25/2007 FIT 09/25/2007 FOBT 09/25/2007 Sigmoidoscopy 09/25/2007 [facility]-Colorectal Cancer Screening 09/25/2007 [facility]-Pneumococcal Vaccine: 50+ Years (1 of 1 - PCV) 2012 [facility]-Zoster Vaccines (1 of 2) 2012 [facility]-Breast Cancer Screening 12/24/2024 07/0 08/2022, 12/24/2022, 11/27/2021, Additional history exists [id number] Vaccine ( - 2024- season) 2025 10/18/2020, 09/20/2020 [facility]-Influenza Vaccine (#1) 2025 05/23/2020 [facility]-DTaP,Tdap,and Td Vaccines (2 - Td or Tdap) 01/26/2032 01/25/2022 [facility]-RSV Vaccine: 60+ Years or (1 - 1-dose 75+ series) 2037 HPV Vaccines Aged Out No longer eligi ble based on patient's age to complete this topic [facility]-HIB Vaccines Aged Out No longer e ligible based on patient's age to complete this topic [facility]-Hepatitis A Vaccines Aged Out No longer eligible based on patient's age to complete this topic [facility]-IPV Vaccines Aged Out No longer e ligible based on patient's age to complete this topic [facility]-Rotavirus Vaccines Aged Out No lo nger eligible based on patient's age to complete this topic Insurance [facility] Care Teams Environmental Health Sanitarian Relationship Specialty Start Date End Date Wei Guerrero MD [address] [facility] [address] [place] [address] PCP - General 11/04/20
--- OUTSIDE RECORDS SUMMARY | 2025-04-21 09:26 | XMS_ITS | Clinical Summary ---
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 job Not on file 0 07/12/2023 Family and Community Support Answer Marcellus e Recorded Help with Day to Day Activities Not on file 07/12/2023 Feeling Lonely or Isolated Not on file 07/12 Educational Attainment Answer Date Marek rded Speak language other than Macanese at home Not on file 07/12/2023 Want help with school or training Not on file 07/12/2023 Substance Use Answer Date Recorded Used prescription meds for non-medical reasons N ot on file 07/12/2023 Used illegal drugs past 12 months Not on file 07/12/2023 Comments Unknown Sex and Gender Information Value Date Recorded Sex Assigned at Not on file Legal Sex Female 3:59 PM CDT Gender Identity Not on file Sexual Orientation Not on file Plan of Treatment Health Maintenance Due Date Last Done Comments CT Colonography 1962 Colonoscopy 1962 Colorectal Cancer Screening 1962 FOBT/FIT 1962 Fit-DNA (Cologuard) 1962 Sigmoidoscopy 1962 Depression Screening (12+) 1974 Tobacco Cessation Counseling and Screening (12+) 1974 HIV Screening 1977 Hepatitis C Screening 1980 Pap Smear 09/25/1983 Lipid Panel 09/25/2007 Pneumococcal 50+ years (1 of 1 - PCV) 2012 Shingles Vaccine (Zoster) (1 of 2) 2012 COVID-19 VACCINE (3 - 2024-2 6 season) 2025 10/18/2020, 09/20/2020 Influenza Vaccine (#1) 2025 Breast Cancer Screening 02/19/2026 02/20/20 24, 12/24/2022, 11/27/2021, Additional history exists DTAP/TDAP/TD VACCINES (2 - T d or Tdap) 01/26/2032 01/25/2022 Respiratory Syncytial Virus (RSV) Adult or (1 - 1-dose 75+ series) 2037 Procedures Procedure Name Priority Date/Time Associated Diagnosis Comments MM DIGITAL MAMMO SCREEN WITH CECY BILATERAL Routine 02/20/2024 8:53 AM EDT Encounter for screening mammogram for malignant neoplasm of breast from Last 3 Months or Most Recently Relevant to Health Maintenance Results * MM digital mammo screen with cecy bilateral (02/20/2024 8:53 AM EDT) Anatomical Region Laterality Modality Breast Bilateral Mammography 02/24/2024 5:03 PM EDT Impressions 02/24/2024 5:06 PM EDT FINAL IMPRESSION: ACR BI-RADS 1: Negative. RECOMMENDATIONS: Routine annual screening mammography. A letter including results and recommendations was sent to the patient. Density notification was provided to patients with type 3 or 4 breast tissue pattern. Patient information entered into a reminder system with a target due date for the next mammogram. At our facility, a [place] marker is positioned over a visible skin lesion and a linear marker is used to indicate a scar. A triangular marker is placed on a self reported palpable finding. Note: Mammography does not detect approximately 10-15% of breast cancers. An annual clinical breast exam by the patient's breast care physician and regular monthly self breast exams by the patient are integral parts of breast cancer screening, in addition to annual mammography. A normal mammogram does not completely exclude the presence of breast cancer, especially if there is an abnormal finding on physical exam. When clinically indicated, a biopsy should not be deferred because of a normal mammogram report. cc: Narrative 02/24/2024 5:06 PM EDT PROCEDURE: Bilateral digital screening mammogram with tomosynthesis. REASON FOR EXAM: Routine screening. FAMILY HISTORY: There is weak family history of breast cancer. COMPARISON STUDY: [facility] FINDINGS: Craniocaudal and mediolateral oblique images of both breasts were obtained in 2D, C-view, and 3D modes. The breast tissue is heterogeneously dense, which may obscure small masses. There has been no change. There is no evidence of dominant mass, architectural distortion, or suspicious calcifications. This examination was reviewed with the benefit of computer-aided detection (CAD). us Jesse Valdivia MD IMG MAMMOGRAPHY ORDERABLES Fin al Result from Last 3 Months or Most Recently Relevant to Health Maintenance Insurance CHOICE PLUS Care Teams Rn Otolaryngology Relationship Specialty Start Date End Date Jesse Valdivia MD [address] [place] [address] PCP - General Obstetrics and Gynecology 12/24/22
--- OUTSIDE RECORDS SUMMARY | 2025-04-21 09:26 | XMS_ITS | Referral Summary ---
Author Organization [employer] ([place], [place], [place], [place]) Address [address] [place] [address] Care Team Providers Care Wound Treatment Rn Name Role Phone Jesse Valdivia MD Primary Care Provider [phone] Social History Tobacco Use Types Packs/Day Years [...] Date Marek rded Speak language other than Afghan at home Not on file 07/12/2023 Want [...] Orientation Not on file Plan of Treatment Not on file Procedures Procedure Name Priority Date/Time Associated Diagnosis [...] the next mammogram. At our facility, a [place] marker is positioned over a visible skin [...] family history of breast cancer. COMPARISON STUDY: [facility] FINDINGS: Craniocaudal and mediolateral oblique images [...] Health Maintenance Insurance CHOICE PLUS Care Teams Wound Treatment Rn Relationship Specialty Start Date End Date Jesse Valdivia MD [address] [place] [address] PCP - General Obstetrics and Gynecology 12/24/22
== END 2025-04-21 23:59 | disposition home or self-care (01) ==
LOC: RAD 08:53
PROVIDERS: PCP Family Medicine; Visit Provider Nurse Practitioner Family
DX: M85.851 Other specified disorders of bone density and structure, right thigh (principal); M85.852 Other specified disorders of bone density and structure, left thigh; Z78.0 Asymptomatic menopausal state
CPT/HCPCS: 77080

== ENCOUNTER 2025-05-19 08:18 | Outpatient (CLI) | payer OTHER, SELFPAY ==
--- OUTSIDE RECORDS SUMMARY | 2023-11-21 05:45 | XMS_ITS ---
Author Organization [facility] Address [address] [facility] [address] [facility] [address] [place] [id number] Care Team Providers Care Fleet Service Manager Name Role Phone Wei Guerrero Primary Care Provider [phone] Nola Beltran Unavailable [phone] REASON FOR VISIT shingles shot Medications Medication SIG (Take, Route, Frequency, Duration) Notes Start Date End Date Status Benzonatate 200 MG 1 capsule Orally Thr ee times a day as needed 06/20/2023 Active Promethazine-DM 6.25-15 MG/5ML 5 ml as needed Orally every 6 hrs 06/20/2023 Active Valsartan-hydroCHLOROthiazi de 160-12.5 MG 1/2 tablet Orally Once a day; Duration: 90 days Active Zithromax Z-Jonathan 250 MG as directed Orall y once daily; Duration: 5 day(s) 06/20/2023 Active Immunizations Vaccine Route Administration Date Status Comme nts Shingrix IM Intramuscular 11/21/2023 Administered Encounters Encounter Location Date Provider Diagnosis [facility] [address] [facility] [address] [place] [id number] 11/21/2023 Nola Redman Encounter for vaccination Z23 Assessments Encounter Date Diagnosis (ICD Code) Assessment Notes Treatment Notes Treatment Clinical Notes Section Notes 11/21/2023 Encounter for vaccination (ICD-10 - Z23) Plan Of Treatment Next Appt Details Follow Up: 2-4 months, Reaso n: Progress Notes * Birgit MORENO:[birth year] (64 yo F)Acc No.[id number]:11/21/2023 Patient: Alta SANTOS Provider: Nola Redman M.D. :1960 A ge:63 Y S ex:Female Date:11/21/2023 Address:[facility] [place] [facility], [id number] Pcp:Wei Guerrero Subjective: * Chief Complaints: * 1 . Shingles shot. * Medical History: * Medications: T aking Zithromax Z-Jonathan 250 MG Tablet as directed Orally once daily , Taking Benzonatate 200 MG Capsule 1 capsule Orally Three times a day as needed , Taking Promethazine-DM 6.25-15 MG/5ML Syrup 5 ml as needed Orally every 6 hrs , Taking Valsartan-hydroCHLOROthiazide 160-12.5 MG Tablet 1/2 tablet Orally Once a day , Medication List reviewed and reconciled with the patient Objective: * Vitals: Assessment: * Assessment: 1. E ncounter for vaccination - Z23 (Primary) Plan: * Treatment: * Immunizations: Shingrix : 0.5 (Route: Intramuscular) given by Tosha Rangel on Left Deltoid (Encounter for vaccination) * Follow Up: 2 -4 months * Images: Billing Information: * Visit Code: * Procedure Codes: * Electronic signature of Nola Redman MD on 05/19/2025 at 08:20 AM EST Sign off status: Pending * Provider: Nloa Redman M.D. Date: 0 11/21/2023 Generated for Nery scott/Radha/[place] on: 07/19/2024 08:20 AM EST
--- OUTSIDE RECORDS SUMMARY | 2023-12-12 09:30 | XMS_ITS ---
Author Organization [facility] Address [address] [facility] [address] [place] [phone] Care Team Providers Care National Recruiter Name Role Phone Yolanda Wei Primary Care Provider [phone] Nola Beltran [phone] Allergies Allergen (clinical drug ingredient) Drug/Non Drug Allergy documented on EMR Reaction Allergy Type Onset Date Status ciprofloxacin Cipro rash Drug Allergy Act levi Penicillin Unknown Drug Allergy Active REASON FOR VISIT check up for medication, Needs labs, mammogram, bone density screening, & colon cancer screening Medications Medication SIG (Take, Route, Frequency, Duration) Notes Start Date End Date Status Valsartan-hydroCHLOROthiaz rosa 160-12.5 MG 1/2 tablet Orally Once a day; Duration: 90 days Active Vital Signs Blood pressure systolic 114 mm Hg 12/12/19 24 Blood pressure diastolic 80 mm Hg 024 Heart Rate 70 /min 12/12/2023 Height 64 in 12/12/2023 Weight 176.6 lbs 12/12/2023 BMI 30.31 kg/m2 12/12/2023 Encounters Encounter Location Date Provider Diagnosis [facility] [address] [facility] [address] [place] [phone] 12/12/2023 Nola Redman Essential hypertensi on I10 and Dyslipidemia E78.5 Assessments Encounter Date Diagnosis (ICD Code) Assessment Notes Treatment Notes Treatment Clinical Notes Section Notes 12/12/2023 Essential hypertension (ICD-10 - I10) 12/12/2023 Dyslipidemia (ICD-10 - E78.5) Plan Of Treatment Medication Medication Name Sig Start Date Stop Date Notes Valsartan-hydroCHLOROthiazid e 160-12.5 MG 1/2 tablet Orally Once a day; Duration: 90 days Next Appt Details Follow Up: 6 Months, Reason: Progress Notes * Alta MORENODOB:[birth year] (64 yo F)Acc No.[id number]:12/12/2023 Progress Notes Patient: Alta SANTOS Provider: Nola Redman M.D. :1960 A ge:63 Y S ex:Female Date:12/12/2023 Address:[facility] [place] [facility] [facility], [id number] Pcp:Wei Guerrero Subjective: * Chief Complaints: * 1 . Check up for medication. 2. Needs labs, mammogram, bone density screening, & colon cancer screening. * HPI: C ardiology: She returns for follow-up on her hypertension. She has been compliant with medication. She brings in a diary of blood pressure readings from home which are consistently normal. Denies : Chest Pain. D enies : Short of Breath. D enies : Palpitations. D enies : Leg Edema. She reports an episode of dizziness and lightheadedness during a recent hiking trip last month. She had no loss of consciousness. She thinks she was simply dehydrated. A fellow hiker gave her fluids and an electrolyte supplement and within 10 minutes, she states she was feeling better. She had no associated chest pain or palpitations. C onstitutional: She reports having a reaction to her last shingles vaccine. Her left arm became swollen, red, and hot for about 4 days. * ROS: D ERMATOLOGY: no R bossman. n o H shaka. G ASTROENTEROLOGY: no N ausea. n o V omiting. U ROLOGY: no D ifficulty urinating. n o B lood in urine. * Medical History: H ypertension, Arthritis, Hiatal hernia, Irritable bowel syndrome, [facility]. 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 * Hospitalization/Major Diagno stic Procedure: t onsillectomy 1968. * Family History: F ather: alive, diagnosed with Diabetes. M other: , diagnosed with Cancer. 1 sister(s) . . Father is borderline diabetic Mother from lung cancer/non smoker. * Social History: C URRENT TOBACCO USE S moking Status: P atient does NOT smoke. C affeine: yes, frequency: tea, soft drinks. Home smoke detector use: yes. Marital Status: . Alcohol: No, Type: , Frequency: ,Years: , Determination:. * Medications: T aking Valsartan-hydroCHLOROthiazide 160-12.5 MG Tablet 1/2 tablet Orally Once a day , Discontinued Zithromax Z-Jonathan 250 MG Tablet as directed Orally once daily , Discontinued Benzonatate 200 MG Capsule 1 capsule Orally Three times a day as needed , Discontinued Promethazine-DM 6.25-15 MG/5ML Syrup 5 ml as needed Orally every 6 hrs , Medication List reviewed and reconciled with the patient * Allergies: P enicillin, Cipro: rash. Objective: * Vitals: W t:176.6, Temp:98.5, BP:114/80, HR:70, Nurse:YVROSE, Ht: 64, BMI:30.31. * Examination: C ardiology: General Appearance: p leasant, NAD. H EENT: u nremarkable. C arotid upstroke: n ormal, no bruits. H eart sounds: R RR, normal S1, S2.?Murmur, click , gallop: n one. L ungs: c lear, no rales or wheezes. E xtremities: n o leg edema. Assessment: * Assessment: 1. E ssential hypertension - I10 (Primary) 2 . D yslipidemia - E78.5 ? Plan: * Treatment: * Follow Up: 6 Months * Images: Billing Information: * Visit Code: 05278 Office Visit, Est Pt., Level 3. * Procedure Codes: * Electronic signature of Nola Redman MD on 05/19/2025 at 08:20 AM EST Sign off status: Pending * Provider: Nola Redman M.D. Date: 12/12/2023 Generated for Nery scott/Faxing/eTransmitting on: 07/19/2024 08:20 AM EST History and Physical Notes * HPI (History of Present Illness) Category Sub-Category Detail Notes Category Not es Cardiology Short of Breath She reports an episode of dizziness and lightheadedness during a recent hiking trip last month. She had no loss of consciousness. She thinks she was simply dehydrated. A fellow hiker gave her fluids and an electrolyte supplement and within 10 minutes, she states she was feeling better. She had no associated chest pain or palpitations. Chest Pain Palpitations Leg Edema Examination Category Sub-Category Detail Notes Category Not es Cardiology Lungs: clear, no rales or wheezes HEENT: unremarkable Heart sounds: RRR, normal S1, S2 Carotid upstroke: normal, no bruits Extremities: no leg edema Murmur, click , gallop: none General Appearance: pleasant, NAD
--- OUTSIDE RECORDS SUMMARY | 2024-04-14 09:45 | XMS_ITS ---
Author Organization [facility] Address [facility] [facility] [address] [place] [phone] Care Team Providers Care Neon Sign Worker Name Role Phone Yolanda Wei Primary Care Provider [phone] Nola Beltran [phone] Allergies Allergen (clinical drug ingredient) Drug/Non Drug Allergy documented on EMR Reaction Allergy Type Onset Date Status ciprofloxacin Cipro rash Drug Allergy Act levi Penicillin Unknown Drug Allergy Active REASON FOR VISIT [facility] ER f/u; Tick bite Medications Medication SIG (Take, Route, Frequency, Duration) Notes Start Date End Date Status Valsartan-hydroCHLOROthiazi de 160-12.5 MG 1/2 tablet Orally Once a day; Duration: 90 days Active Doxycycline Hyclate 100 MG 1 capsule Ora lly Two times a day; Duration: 10 day(s) 04/14/2024 Active Vital Signs Blood pressure systolic 130 mm Hg 04/14/20 24 Blood pressure diastolic 80 mm Hg 024 Heart Rate 66 /min 04/14/2024 Height 64 in 04/14/2024 Weight 172.4 lbs 04/14/2024 BMI 29.59 kg/m2 04/14/2024 Encounters Encounter Location Date Provider Diagnosis [facility] [address] [place] [address] [place] [id number] 04/14/2024 Nola Redman Tick bite W57.XXXA a nd Acute cellulitis L03.90 Assessments Encounter Date Diagnosis (ICD Code) Assessment Notes Treatment Notes Treatment Clinical Notes Section Notes 04/14/2024 Tick bite (ICD-10 - W57.XXXA) 04/14/2024 Acute cellulitis (ICD-10 - L03.90) Plan Of Treatment Medication Medication Name Sig Start Date Stop Date Notes Doxycycline Hyclate 100 MG 1 capsule Ora lly Two times a day; Duration: 10 day(s) 04/14/2024 Next Appt Details Follow Up: prn, Reason: Progress Notes * Alta MORENODOB:[birth year] (64 yo F)Acc No.[id number]:04/14/2024 Progress Notes Patient: Alta SANTOS Provider: Nola Redman M.D. :1960 A ge:63 Y S ex:Female Date:04/14/2024 Address:[facility], [id number] Pcp:Wei Guerrero Subjective: * Chief Complaints: * 1 . [facility] ER f/u; Tick bite. * HPI: D ermatology: She went to the ER last night with a tick bite on her left abdomen. She states the intake To be excised. She is concerned about an area of redness around the tick bite. No drainage. The tick apparently was not identified. * ROS: D ERMATOLOGY: no R bossman. n o H shaka. G ASTROENTEROLOGY: no N ausea. n o V omiting. U ROLOGY: no D ifficulty urinating. n o B lood in urine. * Medical History: H ypertension, Arthritis, Hiatal hernia, Irritable bowel syndrome, Follows with [facility] for mammogram. * Surgical History: t onsillectomy [...] enicillin, Cipro: rash. Objective: * Vitals: W t:172.4, Temp:98.4, BP:130/80, HR:66, Nurse:YVROSE, Ht: 64, BMI:29.59. * Examination: D ermatology: Trunk: O n the left mid abdomen, there is a scabbed lesion with a 3 cm area of surrounding erythema. No induration. No drainage.. ? Assessment: * Assessment: 1. T ick bite - W57.XXXA (Primary) 2 . A cute cellulitis - L03.90 ? Plan: * Treatment: * Follow Up: p rn * Images: Billing Information: * Visit Code: 05365 Office Visit, Est Pt., Level 3. * Procedure Codes: * Electronic signature of Nola Redman MD on 05/19/2025 at 08:20 AM EST Sign off status: Pending * Provider: Nola Redman M.D. Date: Generated for Nery scott/Radha/Lois on: 07/19/2024 08:20 AM EST History and Physical Notes * Examination Category Sub-Category Detail Notes Category Not es Dermatology Trunk: On the left mid abdomen, there is a scabbed lesion with a 3 cm area of surrounding erythema. No induration. No drainage.
--- OUTSIDE RECORDS SUMMARY | 2025-04-06 04:45 | XMS_ITS ---
Author Organization [facility] Address [address] [facility] [address] [place] [address] [place] [phone] Care Team Providers Care Warehouse General Laborer Name Role Phone Wei Guerrero Primary Care Provider [phone] Blanca Gutierrez Unavailable [phone] Allergies Allergen (clinical drug ingredient) Drug/Non Drug Allergy documented on EMR Reaction Allergy Type Onset Date Status ciprofloxacin Cipro rash Drug Allergy Act levi Penicillin Unknown Drug Allergy Active Results Component Value Reference Range Notes CBC Venipuncture (in house) Reviewed date:04/12/2025 02:36:01 PM Interpretation: Performing Lab: Notes/Report: wbc 5.0 3.5 - 10 lymph 28.2% 15 - 50 mid 7.3% 2 - 15 gran 64.5% 35 - 80 rbc 4.30 3.5 - 5.5 hgb 13.2 11.5 - 16.5 hct 38.9 35 - 55 mcv 90.5 75 - 100 mch 30.7 25 - 35 mchc 33.9 31 - 38 platlet 328 100 - 400 P-Comprehensive Metabolic Pa constanza (CMP) Reviewed date:04/12/2025 02:34:53 PM Interpretation:Normal Performing Lab: Notes/Report: Test performed by [facility] [address] [place] [address] , [address], [place] [address] Bg Su MD, Breakfast Supervisor CLIA: [id number] Sodium 145 135-145 mmol/L Potassium 4.6 3.5-5.3 mmol/L Chloride 108 97-108 mmol/L CO2 28 20-32 mmol/L Glucose 90 65-99 mg/dL BUN 17 8-23 mg/dL Creatinine 0.96 0.50-1.00 mg/dL Calcium 9.7 8.6-10.4 mg/dL eGFR by Creatinine 67 >59 mL/min/1.73m2 Protein 6.7 6.0-8.3 g/dL Albumin 4.2 3.5-5.3 g/dL Alkaline Phosphatase 52 35-121 IU/L ALT (SGPT) 18 <5-47 IU/L AST (SGOT) 32 <5-40 IU/L Bilirubin, Total 0.4 <0.2-1.2 mg/dL A/G Ratio 1.7 1.1-2.5 P-Lipid Panel Reviewed date:04/12/2025 02:33:51 PM Interpretation:TC 234; LDL 145; HDL 64; TG 126 Performing Lab: Notes/Report: Test performed by [facility] [address] [place] [address] , [place] [address] Bg Su MD, Breakfast Supervisor CLIA: [id number] Lipid Panel Footnote See Below *Based on optimal reference values. Please refer to the DOS for additional information regarding diagnostic lipid reference ranges, patient management based on the recently updated lipid guidelines ([place] [employer]/[place] [employer] Association Task Force on Clinical Practice Guidelines (2018), and pediatric diagnostic lipid reference values (<18 years old). Total Cholesterol 234 <200 mg/dL Triglycerides 126 <150 mg/dL HDL Cholesterol 64 >50 mg/dL Total Cholesterol / HDL Ratio* 3.66 <3.99 Rati o Non-HDL Cholesterol 170 <130 mg/dL LDL Cholesterol (Calculation) 145 <100 mg/dL LDL / HDL Ratio* 2.26 <1.99 Ratio LDL Cholesterol Patient History Test Date: 06/04/2023 LDL Results: 153 Units: mg/dL % Change: - Test Date: 04/06/2025 LDL Results: 145 Units: mg/dL % Change: -5% P-Vitamin D, 1, 25 Dihydroxy Reviewed date:04/12/2025 02:34:18 PM Interpretation:45.3 Performing Lab: Notes/Report: Test performed by [facility] [address] [place] [address] , [facility], [place] [address] Bg Su MD, Breakfast Supervisor CLIA: [id number] Vitamin D, 1, 25 Dihydroxy 45.3 19.9-79.3 pg/m L REASON FOR VISIT Check Up w/ Fasting Labs, Needs mammogram, bone density screening, colon cancer screening, & flu vaccine Medications Medication SIG (Take, Route, Frequency, Duration) Notes Start Date End Date Status Valsartan-hydroCHLOROthiaz rosa 80-12.5 MG 1 tablet Orally Once a day; Duration: 90 days Active Problems Problem Type SNOMED Code ICD Code Onset Dates Problem Status W/U Status Risk Notes Problem Gastroesophageal reflux disease ([id number]) GERD (gastroeso phageal reflux disease) (K21.9) Active confirmed Vital Signs Blood pressure systolic 132 mm Hg 04/06/20 25 Blood pressure diastolic 92 mm Hg 025 Heart Rate 64 /min 04/06/2025 Height 64 in 04/06/2025 Weight 166.6 lbs 04/06/2025 BMI 28.59 kg/m2 04/06/2025 Encounters Encounter Location Date Provider Diagnosis [facility] [address] [place] [phone] 04/06/2025 Blanca Gutierrez Essential hypertensi on I10 ; Screening, lipid Z13.220 ; Osteopenia M85.80 ; Vitamin D deficiency E55.9 ; GERD (gastroesophageal reflux disease) K21.9 and Heart murmur R01.1 Assessments Encounter Date Diagnosis (ICD Code) Assessment Notes Treatment Notes Treatment Clinical Notes Section Notes 04/06/2025 Essential hypertension (ICD-10 - I10) Pt is on a healthy diet and doing quite well; is losing weight; she will continue with this diet and her active lifestyle 04/06/2025 Screening, lipid (ICD-10 - Z13.220) 04/06/2025 Osteopenia (ICD-10 - M85.80) bone densit to be scheduled 04/06/2025 Vitamin D deficiency (ICD-10 - E55.9) 04/06/2025 GERD (gastroesophageal reflux disease) (ICD-10 - K21.9) 04/06/2025 Heart murmur (ICD-10 - R01.1) pt has seen [facility] in the past [facility]ith ECHO for the heart murmur; she was told that it was OK; 04/06/2025 Other declines Fu vaccine; colonoscopy not due; has mammogram scheduled for this year Plan Of Treatment Medication Medication Name Sig Start Date Stop Date Notes Valsartan-hydroCHLOROthiazid e 80-12.5 MG 1 tablet Orally Once a day; Duration: 90 days Treatment Notes Assessment Notes Essential hypertension Pt is on a health y diet and doing quite well; is losing weight; she will continue with this diet and her active lifestyle Osteopenia bone densit to be sc heduled Heart murmur pt has seen [facility] cardiology in the past sith ECHO for the heart murmur; she was told that it was OK; Other declines Fu vaccine; colonoscopy not due; has mammogram scheduled for this year Next Appt Details Follow Up: 1 Year,and Nola graham: Progress Notes * Alta MORENODOB:[birth year] (64 yo F)Acc No.[id number]:04/06/2025 Progress Notes Patient: Champ Alta MOLINA Provider: ALBERTA Frank :1960 A ge:64 Y S ex:Female Date:04/06/2025 Address:[place], [id number] Pcp:Wei Guerrero Subjective: * Chief Complaints: * 1 . Check Up w/ Fasting Labs. 2. Needs mammogram, bone density screening, colon cancer screening, & flu vaccine. * HPI: C ardiology: The patient is here for a check up on Hypertension. Pt states she doing good and symone any new concerns. Pt is fasting today. Pt is needing a refill for [address] [facility]. Denies : Chest Pain. D enies : Short of Breath. D enies : Dizziness. D enies : Palpitations. * ROS: R ESPIRATORY: no S hortness of breath. n o C hest pain. n o?Chest congestion. n o C ough. C ARDIOLOGY: no C hest pain. n o P alpitations. n o L eg edema. n o S hortness of breath. D ERMATOLOGY: no R bossman. n o H shaka. G ASTROENTEROLOGY: no N ausea. n o V omiting. n o D iarrhea.? U ROLOGY: no D ifficulty urinating. n o B lood in urine. * Medical History: H ypertension, Arthritis, Hiatal hernia, Irritable bowel syndrome, Follows with [facility] for mammogram. * Surgical History: t onsillectomy [...] , Determination:. * Medications: T aking Valsartan-hydroCHLOROthiazide 80-12.5 MG Tablet 1 tablet Orally Once a day , Discontinued Valsartan-hydroCHLOROthiazide 160-12.5 MG Tablet 1/2 tablet Orally Once a day , Discontinued Doxycycline Hyclate 100 MG Capsule 1 capsule Orally Two times a day , Medication List reviewed and reconciled with the patient * Allergies: P enicillin, Cipro: rash. Objective: * Vitals: W t: 166.6, Temp: 98.0, BP: 132/92, HR: 64, Nurse: MICHEAL, Ht: 64, BMI:28.59. * Examination: G eneral Examination: General Appearance: N AD, appears healthy, alert, pleasant, well nourished and hydrated. H EENT: s clera and conjunctiva clear, PERRLA, TM's normal, translucent. O ral cavity: m ucosa moist and WNL, no erythema. N katelynn: s upple, no lymphadenopathy, no carotid bruits, thyroid normal. H eart: R RR; + murmur. L ungs: C TAB A&P. A bdomen: b owel sounds present, soft and nontender, no organomegaly or masses, no guarding or rigidity, no aortic bruit. N eurologic Exam: a lert and oriented. E xtremities: n o leg edema. Assessment: * Assessment: 1. E ssential hypertension - I10 (Primary) 2 . S creening, lipid - Z13.220? 3. O steopenia - M85.80 4 . V itamin D deficiency - E55.9? 5. G ERD (gastroesophageal reflux disease) - K21.9 6 . H eart murmur - R01.1 Plan: * Treatment: Value Reference Range A /G Ratio 1.7 1.1-2.5 - * A lbumin 4.2 3.5-5.3 - g/dL * A lkaline Phosphatase 52 35-121 - IU/L * A LT (SGPT) 18 <5-47 - IU/L * A ST (SGOT) 32 <5-40 - IU/L * B ilirubin, Total 0.4 <0.2-1.2 - mg/dL * B UN 17 8-23 - mg/dL * C alcium 9.7 8.6-10.4 - mg/dL * C hloride 108 97-108 - mmol/L * C O2 28 20-32 - mmol/L * C reatinine 0.96 0.50-1.00 - mg/dL * G lucose 90 65-99 - mg/dL * P otassium 4.6 3.5-5.3 - mmol/L * S odium 145 135-145 - mmol/L * P rotein 6.7 6.0-8.3 - g/dL * e GFR by Creatinine 67 >59 - mL/min/1.73m2 * Blanca Gutierrez 5 02:34:28 PM EDT >I spoke with pt and reported results Notes: Pt is on a healthy diet and doing quite well; is losing weight; she will continue with this diet and her active lifestyle??2.?Screening, lipid?LAB: P-Lipid Panel (Collection Date & Time - 04/06/2025 12:26 PM)?TC 234; LDL 145; HDL 64; TG 126* Value Reference Range C holesterol / HDL Ratio 3.66 <3.99 - Ratio * C holesterol 234 H <200 - mg/dL * H DL Cholesterol 64 >50 - mg/dL * L DL Cholesterol (Calculation) 145 H <100 - mg/d L * L DL/HDL Ratio 2.26 H <1.99 - Ratio * N on-HDL Cholesterol 170 H <130 - mg/dL * T riglycerides 126 <150 - mg/dL * L ipid Panel Footnote See Below - * Blanca Gutierrez 5 02:32:17 PM EDT >I spoke with pt and discussed results; reviewed low fat/chol diet; she wishes to continue with her new healthy diet and repeat Lipids ; she declins Chol med 3.?Osteopenia? Notes: bone densit to be scheduled??4.?Vitamin D deficiency?LAB: P-Vitamin D, 1, 25 Dihydroxy (Collection Date & Time - 04/06/2025 12:26 PM)?45.3* Value Reference Range V itamin D, 1, 25 Dihydroxy 45.3 19.9-79.3 - pg /mL * Blanca Gutierrez 5 02:33:59 PM EDT >I spoke with pt and reported resu;tls 5.?GERD (gastroesophageal reflux disease)?LAB: CBC Venipuncture (in house) (Collection Date & Time - 04/06/2025)* Value Reference Range w bc 5.0 3.5 - 10 * l ymph 28.2% 15 - 50 * m id 7.3% 2 - 15 * g ran 64.5% 35 - 80 * r bc 4.30 3.5 - 5.5 * h gb 13.2 11.5 - 16.5 * h ct 38.9 35 - 55 * m cv 90.5 75 - 100 * m ch 30.7 25 - 35 * m chc 33.9 31 - 38 * p latlet 328 100 - 400 * Kathleen Lundy L 04/06/2025 1 1:22:20 AM EDT >Blanca Gutierrez 04/12/2025 02:35:42 PM EDT >I spoke with pt and reported results 6.?Heart murmur? Notes: pt has [facility] heart [facility]; she was told that it was OK; ??7.?Others? Notes: declines Fu vaccine; colonoscopy not due; has mammogram scheduled for this year?? * Procedure Codes: 8 5025 CBC WITH AUTO DIFF, 1036F TOBACCO NON-USER * Follow Up: 1 Year,and prn * Images: Billing Information: * Visit Code: 47118 Office Visit, Est Pt., Level 4. * Procedure Codes: 73996 CBC WITH AUTO DIFF. 1036F TOBACCO NON-USER. * Electronic signature of Saranya Gutierrez APRN on 05/19/2025 at 08:21 AM EST Sign off status: Pending * Provider: ALBERTA Frank Date: Generated for Nery scott/Radha/Lois on: 07/19/2024 08:21 AM EST History and Physical Notes * HPI (History of Present Illness) Category Sub-Category Detail Notes Category Not es Cardiology Short of Breath Chest Pain Palpitations Dizziness Examination Category Sub-Category Detail Notes Category Not es General Examination HEENT: sclera and c onjunctiva clear, PERRLA, TM's normal, translucent Heart: RRR; + murmur Lungs: CTAB A&P Abdomen: bowel sounds present , soft and nontender, no organomegaly or masses, no guarding or rigidity, no aortic bruit Extremities: no leg edema General Appearance: NAD, appears healthy , alert, pleasant, well nourished and hydrated Neurologic Exam: alert and oriented Neck: supple, no lymphaden opathy, no carotid bruits, thyroid normal Oral cavity: mucosa moist and WNL , no erythema
--- NOTE | 2025-05-19 08:00 | MM_ITS ---
PROCEDURE INFORMATION: Exam: MG Bilateral Screening 3D Mammography Exam date and time: 05/19/2025 8:21 AM Age: 64 years old Clinical indication: Screening examination. . Family history of breast carcinoma. TECHNIQUE: Imaging protocol: Bilateral Screening tomosynthesis and 2D mammography including computer-aided detection (CAD) when performed. COMPARISON: [facility] Digital [facility]ell Screen BILAT 11/27/2021 4:05 PM FINDINGS: MAMMOGRAPHY: Breast composition: The breasts are heterogeneously dense, which may obscure small masses. Mass: No suspicious masses. Architectural distortion: No suspicious distortion. Calcifications: No suspicious calcifications. Asymmetric density: None. Skin thickening: None. Axillary adenopathy: None. IMPRESSION: 1. No mammographic evidence of malignancy. Annual screening is recommended unless otherwise clinically indicated. 2. Given the reported risk factors for this patient, a breast cancer risk assessment may prove useful for further evaluation. ASSESSMENT: BI-RADS Category 1: Negative.
--- OUTSIDE RECORDS SUMMARY | 2025-05-19 08:20 | XMS_ITS | Patient Health Record ---
Author Organization [facility] Address [address] [place] [id number] Care Team Providers Care Social Worker Palliative Care Name Role Phone Wei Guerrero Primary Care Provider GutierrezRo aminBlanca Unavailable [phone] Allergies Allergen (clinical drug ingredient) Drug/Non Drug [...] Interpretation:Normal Performing Lab: Notes/Report: Test performed by [employer], [employer] [address] [place] [address] , [address], [place] [address] Bg Su MD, Feed Mixer CLIA: [id number] Sodium 145 135-145 mmol/L Potassium 4.6 3.5-5.3 [...] 126 Performing Lab: Notes/Report: Test performed by [employer] [address] [place] [address] , [place] [address] Bg Su MD, Feed Mixer CLIA: [id number] Lipid Panel Footnote See Below *Based on optimal reference values. Please refer to the DOS for additional information regarding diagnostic lipid reference ranges, patient management based on the recently updated lipid guidelines ([place] College of Cardiology/[place] Heart Association Task Force on Clinical Practice [...] Interpretation:45.3 Performing Lab: Notes/Report: Test performed by [employer] [address] [place] [address] , [address], [place] [address] Bg Su MD, Feed Mixer CLIA: [id number] Vitamin D, 1, 25 Dihydroxy 45.3 19.9-79.3 pg/m L Bone density Reviewed date:04/26/2025 03:40:47 PM Interpretation:bilateral hip osteopenia Performing Lab: Notes/Report: bilateral hip osteopenia Reason For Referral No Information Medications Medication SIG (Take, Route, Frequency, Duration) Notes Start Date End Date Status Valsartan-hydroCHLOROthiaz rosa 80-12.5 MG 1 tablet Orally Once a day; Duration: 90 days Active Immunizations Vaccine Route Administration Date Status Comme nts COVID 19 Pfizer Unknown 10/18/2020 Administered COVID 19 Pfizer Unknown 09/20/2020 Administered Shingrix IM Intramuscular 06/04/2023 Administered Tetanus Tdap-Adacel (over 7yrs) Unknown 01/25/2022 Administered Shingrix IM Intramuscular 11/21/2023 Administered Fluzone Quad (6months&older) IM Intramuscular 05/23/2020 Administered Problems Problem Type SNOMED Code ICD Code Onset Dates Problem Status W/U Status Risk Notes Problem Gastroesophageal reflux disease (961514537) GERD (gastroesophage al reflux disease) (K21.9) Active confirmed Problem Vitamin D deficiency (03018170) Vitamin D deficiency (E55.9) Active confirmed Problem Essential hypertension (81053169) Essential hypertension (I10) Active confirmed Problem Arthritis (1331360) Arthritis (M19.90) Active confirmed Problem Dyslipidemia (792820889) Dyslipidemia (E78.5) Active confirmed Vital Signs Heart Rate 64 /min 04/06/2025 Blood pressure diastolic 92 mm Hg 04/06/2025 Height 64 in 04/06/2025 Blood pressure systolic 132 mm Hg 04/06/2025 Weight 166.6 lbs 04/06/2025 BMI 28.59 kg/m2 04/06/2025 Encounters Encounter Location Date Provider Diagnosis [facility] [address] [facility] [address] [place], [place] [id number] 04/06/2025 Blanca Gutierrez Essential hypertensi on I10 [...] murmur (ICD-10 - R01.1) pt has seen [facility] in the past sit ECHO for the heart murmur; she was told that it was OK; 04/06/2025 Other declines Fu vaccine; colonoscopy not due; has mammogram scheduled for this year Plan Of Treatment No Information Insurance Providers Payer Name Payer Address Payer Phone Subscriber Number Group Number Insured Name Patient Relationship to Insured Coverage Start Date Coverage End Date [facility] [address] [place] [phone] [id number] Alta MORENO Self - patient is the insured Medical (General) History Medical History History ICD Code hypertension Arthritis Hiatal hernia irritable bowel syndrome Follows with [facility] for mammogram Surgical History Surgery Date(Month/Year) tonsillectomy 1969 laparoscopy 2004 Outpt. benign tumor/cyst from tongue 198 0's Hospitalization History Reason Date(Month/Year) tonsillectomy 1969
--- OUTSIDE RECORDS SUMMARY | 2025-05-19 08:20 | XMS_ITS | Encounter Summary ---
Author Organization [facility] Address [address] [place] [address] Care Team Providers Care Compensation Intern Name Role Phone Wei Guerrero MD Primary Care Provider [phone] Encounter Details Date Type Department Care Team (Latest Contact Info) Description 04/26/2025 Travel Social History Tobacco Use Types Packs/Day Years Used Date Smoking Tobacco: Never Assessed Comments Unknown Sex and Gender Information Value Date Recorded Sex Assigned at Not on file Legal Sex Female 8:01 PM EDT Gender Identity Not on file Sexual Orientation Not on file documented as of this encounter Plan of Treatment Upcoming Encounters Date Type Department Care Team (Late st Contact Info) Description 05/02/2026 7:30 AM EST Ovarian Cancer Screening [facility] Gynecology [address] [facility] [place] [address] documented as of this encounter Visit Diagnoses Not on filedocumented in this encounter Care Teams Compensation Intern Relationship Specialty Start Date End Date Wei Guerrero MD [address] [facility] [address] [place] [address] PCP - General 11/04/20 documented as of this encounter
--- OUTSIDE RECORDS SUMMARY | 2025-05-19 08:21 | XMS_ITS | Clinical Summary ---
Author Organization Healthcare Address [address] [place] [address] Care Team Providers Care Software Quality Assurance Engineer Name Role Phone Wei Guerrero MD Primary Care Provider [phone] Encounters Date Type Department Care Team Description 04/26/2025 Travel from Last 3 Months Social History Tobacco Use Types Packs/Day Years [...] 05/02/2026 7:30 AM EST Ovarian Cancer Screening [facility] Gynecology [address] [place] [address] Health Maintenance Due Date Last Done Comments [...] 2012 [facility]-Zoster Vaccines (1 of 2) 2012 [facility]-AUTTE-45 Vaccine (3 - season) 2025 10/18/2020, 09/20/2020 [facility]-Influenza Vaccine (#1) 2025 05/23/2020 [facility]-Breast Cancer Screening 02/19/202601/23, 02/20/2024, 12/24/2022, Additional history exists [facility]-DTaP,Tdap,and Td Vaccines (2 - Td or [...] patient's age to complete this topic Insurance Care Teams Software Quality Assurance Engineer Relationship Specialty Start Date End Date Wei Guerrero MD [address] [id number] PCP - General 11/04/20
--- OUTSIDE RECORDS SUMMARY | 2025-05-19 08:21 | XMS_ITS | Clinical Summary ---
Author Organization [facility] [facility] ([place], [place], [place], [place], [place]) Address [address] [place] [address] Care Team Providers Care Retouching Operator Name Role Phone Jesse Valdivia MD Primary Care Provider [phone] Social History Tobacco Use Types Packs/Day Years [...] Date Marek rded Speak language other than Surinamese at home Not on file 07/12/2023 Want [...] the next mammogram. At our facility, a [place] marker is positioned over a visible skin [...] family history of breast cancer. COMPARISON STUDY: [facility] FINDINGS: Craniocaudal and mediolateral oblique images [...] Health Maintenance Insurance CHOICE PLUS Care Teams Retouching Operator Relationship Specialty Start Date End Date Jesse Valdivia MD [address] [place] [place] [address] PCP - General Obstetrics and Gynecology 12/24/22
--- OUTSIDE RECORDS SUMMARY | 2025-05-19 08:21 | XMS_ITS | Referral Summary ---
Author Organization [employer] ([place], [place], [place], [place], [place]) Address [address] [place] [address] Care Team Providers Care Rod Welder Name Role Phone Jesse Valdivia MD Primary Care Provider [phone] Social History Tobacco Use Types Packs/Day Years [...] Date Marek rded Speak language other than Ivorian at home Not on file 07/12/2023 Want [...] the next mammogram. At our facility, a [place] marker is positioned over a visible skin [...] family history of breast cancer. COMPARISON STUDY: [facility] FINDINGS: Craniocaudal and mediolateral oblique images of [...] Health Maintenance Insurance CHOICE PLUS Care Teams Rod Welder Relationship Specialty Start Date End Date Jesse Valdivia MD [address] [place] [address] PCP - General Obstetrics and Gynecology 12/24/22
== END 2025-05-19 23:59 | disposition home or self-care (01) ==
LOC: RAD 08:18
PROVIDERS: PCP Family Medicine; Visit Provider Obstetrics & Gynecology
DX: Z12.31 Encounter for screening mammogram for malignant neoplasm of breast (principal); R92.333 Mammographic heterogeneous density, bilateral breasts; Z80.3 Family history of malignant neoplasm of breast
CPT/HCPCS: 77063; 77067